=== PATIENT | female | born 2000 | race Caucasian/White ===

== ENCOUNTER 2019-08-05 19:32 | Emergency (ER) | payer OTHER, SELFPAY ==
--- NOTE | ~2019-08-05 | XR_ITS ---
EXAMINATION: XR tibia fibula RT 2V DATE: 08/05/2019 20:29 INDICATION: Distal right anterior tibia/fibular pain. TECHNIQUE: AP and lateral views of the right tibia and fibula were obtained. COMPARISON: None. FINDINGS: Alignment is normal. No fracture. Joint spaces are normal. Soft tissues are unremarkable. No right an kle joint effusion. IMPRESSION: 1. Negative right tibia/fibula radiographs. Reviewed, dictated and finalized at location A.
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
[2019-08-05 19:39] VITALS: BP 124/78; PULSE 72; RESP 18; TEMP 36.7; O2SAT 100
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
[2019-08-05] MEDS: IBUPROFEN 600 MG TABLET PO (21:24)
[2019-08-05 22:10] VITALS: BP 114/63; PULSE 82; RESP 16; O2SAT 100
[2019-08-05 22:45] VITALS: BP 119/57; PULSE 74; RESP 18; O2SAT 100
== END 2019-08-05 22:48 | disposition home or self-care (01) ==
PROVIDERS: Emergency Provider Emergency Medicine
DX: S00.93XA Contusion of unspecified part of head, initial encounter (principal); S80.11XA Contusion of right lower leg, initial encounter; V49.50XA Passenger injured in collision with unspecified motor vehicles in traffic accident, initial encounter
CPT/HCPCS: 70450; 71046; 73590; 99284; A9270